=== PATIENT | male | born 1950 | race African-American/Black ===

== ENCOUNTER 2020-01-08 14:19 | Emergency (ER) | payer MEDICARE, OTHER ==
[~2020-01-08] VITALS: Ht 170.2 cm; Wt 69.0 kg
[2020-01-08] MEDS ORDERED: IBUPROFEN 600MG TABLET PO ONE (15:00)
[2020-01-08] MEDS ORDERED: HYDROCODONE/APAP 7.5/325MG 1 TAB TABLET PO ONE (15:00)
[2020-01-08 16:30] VITALS: BP 123/75
== END 2020-01-08 16:40 | disposition home or self-care (01) ==
LOC: ER 14:19
DX: S90.32XA Contusion of left foot, initial encounter (principal); S60.211A Contusion of right wrist, initial encounter; I10 Essential (primary) hypertension; Z98.890 Other specified postprocedural states; W01.0XXA Fall on same level from slipping, tripping and stumbling without subsequent striking against object, initial encounter; Y93.89 Activity, other specified; Y92.89 Other specified places as the place of occurrence of the external cause; Y99.8 Other external cause status
CPT/HCPCS: 73110; 73630; 99283; 99284